=== PATIENT | male | born 1980 | race African-American/Black ===

== ENCOUNTER 2024-05-20 19:01 | Emergency (ER) | payer OTHER, SELFPAY ==
[2024-05-20 19:06] VITALS: BP 145/95
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
[2024-05-20] MEDS: TYLENOL 1000 MG PO (20:50)
== END 2024-05-20 22:15 | disposition home or self-care (01) ==
LOC: EMR 19:01
PROVIDERS: EMERGENCY PHYSICIAN Emergency Medicine
DX: S62.502A Fracture of unspecified phalanx of left thumb, initial encounter for closed fracture (principal); V49.40XA Driver injured in collision with unspecified motor vehicles in traffic accident, initial encounter; Y92.410 Unspecified street and highway as the place of occurrence of the external cause
CPT/HCPCS: 99284; 70450; 71101; 72110; 73130; 73590